=== PATIENT | male | born 1985 | race Caucasian/White ===

== ENCOUNTER 2019-05-17 14:42 | Emergency (ER) | payer OTHER ==
[~2019-05-17] VITALS: Ht 180.3 cm; Wt 120.2 kg
[2019-05-17] MEDS ORDERED: KEFLEX500 M1 PO (15:39)
[2019-05-17 15:52] VITALS: BP 152/106
== END 2019-05-17 15:54 | disposition home or self-care (01) ==
LOC: M.ERS 14:42
DX: L03.113 Cellulitis of right upper limb (principal); F17.210 Nicotine dependence, cigarettes, uncomplicated